=== PATIENT | male | born 1995 | race American Indian/Alaskan Native ===

== ENCOUNTER 2018-02-09 08:53 | Emergency (ER) | payer SELFPAY ==
--- NOTE | 2018-02-09 09:55 | EDM.PDOC ---
ED HPI GENERAL MEDICAL PROBLEM - General Chief Complaint: Laceration Stated Complaint: LEFT LEG LACERATION/PUNCTURE Time Seen by Provider: 02/09/18 09:33 Source of Information: Reports: Patient History Limitations: Reports: No Limitations - History of Present Illness INITIAL COMMENTS - FREE TEXT/NARRATIVE: Patient sustained puncture wound over 12 hours ago while participating in a rodeo. Had wire holding his pants together and somehow managed to get a cut from the wire in the lower right leg when he fell. Came to ER as the wound continues to ooze. Tetanus updated one year ago. Denies other injuries. No numbness/tingling of injured extremity. 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) Right Lower Leg Pain Score (Numeric/FACES): 4 - Related Data Allergies Allergy/AdvReac Type Severity Reaction Status Date / Time brompheniramine Allergy Hives Verified 02/09/18 08:58 [From Dimetapp (brompheniramine-PPA)] phenylpropanolamine Allergy Hives Verified 02/09/18 08:58 [From Dimetapp (brompheniramine-PPA)] Home Meds: Home Meds cephALEXin [Keflex] 500 mg PO Q8H #15 cap 02/09/18 [Rx] Past Medical History Respiratory History: Reports: Pneumothorax Social & Family History - Tobacco Use Smoking Status *Q: Current Every Day Smoker Years of Tobacco use: 5 Packs/Tins Daily: 1 - Caffeine Use Caffeine Use: Reports: Soda - Alcohol Use Alcohol Use History: Yes Alcohol Use Frequency: Socially ED ROS GENERAL - Review of Systems Review Of Systems: ROS reveals no pertinent complaints other than HPI. ED EXAM, SKIN/RASH Exam: See Below Exam Limited By: No Limitations General Appearance: Alert, WD/WN, No Apparent Distress Eye Exam: Bilateral Eye: EOMI, PERRL Head: Atraumatic, Normocephalic Neck: Supple Respiratory/Chest: No Respiratory Distress Neurological: Alert, Oriented, Normal Cognition, Normal Gait, Other (equal strength and tone bilaterally) Psychiatric: Normal Affect, Normal Mood Skin: Warm, Dry, Other (1cm round laceraton medial right lower leg. No active bleeding. Probing wound shows that it tunnels under skin approximately 3cm inferiorly and laterally. ) Associated features: No: Swelling, Induration, Inflammation ED SKIN PROCEDURES - Laceration/Wound Repair Right Lower Leg Lac/Wound length In cm: 1.5 Appearance: Muscle, Other (Puncture wound appearance with some tunneling laterally and inferiorly to entrance) Local Anesthesia - Lidocaine (Xylocaine): 1% Plain Local Anesthetic Volume: 5cc Skin Prep: Saline Exploration/Debridement/Repair: Wound Explored, In a Bloodless Field, Explored to Base, No Foreign Material Found Suture Size: 3-0 Suture Type: Nylon, Interrupted Drain Placement: No Sterile Dressing Applied: Nurse Tetanus Status Addressed: Yes Complications: No Course - Vital Signs Last Recorded V/S: Last Vital Signs Temp 36.6 C 02/09/18 09:32 Pulse 89 02/09/18 09:32 Resp 17 02/09/18 09:32 BP 134/77 02/09/18 09:32 Pulse Ox 97 02/09/18 09:32 - Orders/Labs/Meds Meds: Medications Discontinued Medications Generic Name Dose Route Start Last Admin Trade Name Esau PRN Reason Stop Dose Admin Lidocaine HCl 5 ml 02/09/18 09:49 02/09/18 09:52 Xylocaine-Mpf 1% INJECT 02/09/18 09:50 5 ml ONETIME ONE Administration - Re-Assessments/Exams Free Text/Narrative Re-Assessment/Exam: 02/09/18 10:09 Two sutures placed to hold together wound margins. Given nature of wound and that it has been 12 hours since injury, will place patient on antibiotics. Precautions reviewed. To follow up as needed if any signs of infection are noted. Patient plans to participate in a rodeo next . Recommend that sutures be removed on that following SundayFeb 18 or SundayFeb 19 given the holiday weekend. Departure - Departure Time of Disposition: 10:11 Disposition: Home, Self-Care 01 Condition: Good Clinical Impression: Laceration of right calf without complication Qualifiers: Encounter type: initial encounter Qualified Code(s): S81.811A - Laceration without foreign body, right lower leg, initial encounter - Discharge Information *PRESCRIPTION DRUG MONITORING PROGRAM REVIEWED*: Not Applicable *COPY OF PRESCRIPTION DRUG MONITORING REPORT IN PATIENT SANIYA: Not Applicable Prescriptions: cephALEXin [Keflex] 500 mg PO Q8H #15 cap Instructions: Sutured Wound Care, [id number] Referrals: PCP,None [Primary Care Provider] - Forms: ED Department Discharge Additional Instructions: Take antibiotics as directed for 5 days. Return for re-evaluation if signs of infection develop. Wound care/bandaging as discussed. Have sutures removed AFTER next weekend's rodeo, on either the or 19 of February.
[2018-02-09] MEDS ORDERED: Bacitracin/Neomycin/Polymyxin B Oint 0.9 GM U/D Packet ONE (10:04)
== END 2018-02-09 10:25 | disposition home or self-care (01) ==
LOC: LL.ED 08:53
DX: S81.811A Laceration without foreign body, right lower leg, initial encounter (principal); Z88.8 Allergy status to other drugs, medicaments and biological substances; W45.8XXA Other foreign body or object entering through skin, initial encounter; F17.210 Nicotine dependence, cigarettes, uncomplicated
CPT/HCPCS: 12001; 99283